=== PATIENT | female | born 1960 | race Caucasian/White ===

== ENCOUNTER → 2016-07-05 | Outpatient (CLI) | payer OTHER ==
[~2016-07-05] MED LIST: ACCUNEB0.21 MG/ML IH; ALBUTEROL MININEB; ALBUTEROL20 ml; ALL DAY ALLERGY10 M3; ALLER-TEC10 MG PO; ALPRAZOLAM ER1 MG PO; ALPRAZOLAM PO; ALPRAZOLAM1 MG PO; AMOXICILLIN875 MG PO; APIDRA (NF100 UNITS/ SUBQ; APIDRA100 U/ML SQ; ASTEPRO137 MCG/0. NS; ASTEPRO205.5 MCG/; ASTEPRO205.5 MCG/ NS; ATROVENT; BACTRIM DS TABL1 TA1 PO; BACTROBAN22 GM TP; BENTYL20 M1 PO; BENZONATATE PO; CETIRIZINE HCL10 MG PO; CIPRO PO; CLARITIN10 M2 PO; CLARITIN10 MG PO; COMBIVENT INH14.7 GM INH; COMBIVENT RESPIM4 GM IH; COMBIVENT U/D3 M2 INH; COMBIVENT U/D3 ML INH; COUMADIN PO; COUMADIN3 MG PO; DICYCLOMINE HCL20 MG PO; GABAPENTIN300 MG PO; GABAPENTIN600 MG PO; HUMULIN R100 U/ML SUBQ; IPRATROPIUM BR2.5 ML; K-DUR10 MEQ PO; KCL PO; LANTUS100 U/ML; LANTUS100 U/ML SUBQ; LANTUS100 UNITS/ SUBQ; LASIX PO; LASIX80 MG PO; LEVAQUIN750 MG PO; LORTAB 10/500 T1 TAB PO; LUMIGAN; MEDROL4 MG PO; METRONIDAZOLE; MUCINEX DM ER1 EACH PO; NEURONTIN PO; NEURONTIN600 MG PO; OMEPRAZOLE20 M2 PO; OXYCODON HCL-AP1 TA2 PO; OXYCODONE-APAP1 EAC5 PO; PERCOCET 10/3251 TAB PO; PERCOCET10 PO; PHENERGAN PR; PHENERGAN25 M1 PO; POTASSIUM CHLO20 ME1 PO; PRILOSEC PO; PRILOSEC20 MG PO; PROMETHAZINE W118 M1 PO; REGLAN10 MG PO; ROBITUSSIN COU118 M5 PO; TAMIFLU75 M1 PO; TUSSIONEX PENN480 ML PO; VIBRAMYCIN100 M1 PO; VICODIN 5/500 T1 TAB PO; XANAX1 MG PO; ZITHROMAX PO; ZITHROMAX1 G/PKT PO; ZOFRAN PO; [UNRECOGNIZED DRUG - OTHER]; [UNRECOGNIZED DRUG - REMARK]
--- NOTE | ~2016-07-05 | CR243 ---
[facility]. [facility] A Service of [facility] RADIOLOGY TEXT RESULTS PATIENT: TRINI ETIENNE LOCATION: [facility] : 56 UNIT #: [id number] AGE: [address]: Mary Macedo APRN SEX: F ORDER DR: [id number] [address] [address] [id number] O MR#: [id number] Acc #: [id number] NAME: TRINI ETIENNE : 1960 SEX: F STUDY DATE/TIME: 07/05/2016 10:15 UNIT: [facility]AD ROOM: STUDY DESCRIPTION: CR Thoracic Spine 3 Views Attending Physician: Mary Macedo Aprn Referring Physician: Mary Macedo Aprn Ordering Physician: Mary Macedo Aprn Primary Care Physician: No Primary Care Physician MEDICAL IMAGING REPORT This report is preliminary unless electronic signature is present. EXAM Thoracic spine 07/05/2016 HISTORY 55-year-old female with back pain for several months. No specific injury. COMPARISON None. FINDINGS 3 views of the thoracic spine demonstrate no acute fracture or subluxation. Vertebral body heights and alignment normally maintained. Cervicothoracic junction is unremarkable. Disc spaces adequately maintained. IMPRESSION Unremarkable thoracic spine Dictated by... Kofi Ward M.D. THIS IS AN ELECTRONICALLY VERIFIED REPORT Kofi Ward M.D. at 07/06/2016 7:03 AM FRANSISCO/maya TD: 07/06/2016 02:20 JOB #: [id number] MEDICAL IMAGING REPORT Page 1 of 1
== END | disposition home or self-care (01) ==
LOC: SRAD 10:02
DX: M54.6 Pain in thoracic spine (principal)
CPT/HCPCS: 72072